=== PATIENT | female | born 1935 | race Caucasian/White ===

== ENCOUNTER → 2017-01-08 | Outpatient (CLI) | payer MEDICARE, MEDICAID ==
--- NOTE | 2017-01-08 12:34 | RADRPT ---
PROCEDURE: XR Right hip and pelvis. CLINICAL INDICATION: Right hip pain and pelvic pain. TECHNIQUE: 3 views. Frontal pelvis. Frontal and lateral right hip. COMPARISON: None. FINDINGS: There has been open reduction and internal fixation of both hips with rods in the shafts of the femu rs and screws in the neck of the femurs. There is no acute fracture and there is no dislocation. The soft tissues are normal. Articular surfaces are intact. There is no lytic or blastic lesion. There are degenerative changes of the lower lumbar spine. IMPRESSION: 1. Satisfactory postoperative appearance of both hips. 2. Degenerative changes of the lower lumbar spine. RPTAT: QQ .Kris Jones MD, MD Date Time Electronically viewed and signed by .Kris Jones MD, on 01/08/2017 12:33 .R/
--- NOTE | 2017-01-08 12:35 | RADRPT ---
PROCEDURE: XR Right Femur. CLINICAL INDICATION: Right leg pain. TECHNIQUE: AP and lateral views of the right femur were performed. COMPARISON: 11/27/2013. FINDINGS: There is a carmen in the shaft of the femur with a screw in the neck of the femur and a locking screw d istally in the shaft of the femur. Alignment of the right hip fracture is satisfactory. There is n o acute fracture or dislocation. Vascular calcifications are present consistent with atherosclerosis. Articular surfaces are intact. There is no lytic or blastic lesion. There are degenerative changes of the right knee joint. IMPRESSION: 1. Satisfactory postoperative appearance of the right femur. 2. Atherosclerosis. RPTAT: QQ .Kris Jones MD, MD Date Time Electronically viewed and signed by .Kris Jones MD, on 01/08/2017 12:34 .R/
== END | disposition home or self-care (01) ==
LOC: HKI 11:15
PROVIDERS: ATTEND Orthopaedic Surgery
DX: S72.141D Displaced intertrochanteric fracture of right femur, subsequent encounter for closed fracture with routine healing (principal); X58.XXXD Exposure to other specified factors, subsequent encounter; Z91.81 History of falling
CPT/HCPCS: 73502; 73552; G0463

== ENCOUNTER → 2017-02-15 | Outpatient (CLI) | payer MEDICARE, MEDICAID ==
--- NOTE | 2017-02-15 19:20 | RADRPT ---
PROCEDURE: XR Left Hip and pelvis. CLINICAL INDICATION: Left hip pain. Pelvic pain. TECHNIQUE: Two views. Frontal pelvis and lateral left hip. COMPARISON: 01/08/2017. FINDINGS: There has been open reduction and internal fixation of both hips. Alignment is satisfactory. There is no new fracture or dislocation. Vascular calcifications are present consistent with atheroscler osis. The articular surfaces are intact. There is no lytic or blastic lesion. There are degenerat kenisha changes of the lower lumbar spine. IMPRESSION: 1. Satisfactory postoperative appearance of both hips. RPTAT: QQ .Kris Jones MD, MD Date Time Electronically viewed and signed by .Kris Jones MD, MD on 02/15/2017 19:20 .R/
== END | disposition home or self-care (01) ==
LOC: HKI 10:10
PROVIDERS: ATTEND Orthopaedic Surgery
DX: Z01.818 Encounter for other preprocedural examination (principal)
CPT/HCPCS: 73502; 87081; G0463

== ENCOUNTER 2017-02-23 09:44 | Inpatient (IN) | payer MEDICARE, OTHER ==
[~2017-02-23] VITALS: Ht 157.5 cm; Wt 59.0 kg
[2017-02-23] VITALS (24 sets, daily range): BP systolic 117–148; BP diastolic 53–73; PULSE 53–76; RESP 10–20; Ht 157.5 cm; Wt 59.0 kg
[~2017-02-23 09:44] MED LIST: BUPIVACAINE LIPOSOME/PF 266 MG/20 ML VIAL INFIL ONE; CEFAZOLIN 2GM/50 ML (PMX) 50 ML X1 BEFORE INCISION IVPB ONE; CELECOXIB 400 MG PO X1 DOSE PO ONE; ETOMIDATE 20 MG INJ ONE; ONDANSETRON 4 MG IV X 1 DOSE IV ONE; PAIN COCKTAIL-CEFUROXIME IRR ONE; PREGABALIN 300 MG PO X1 PO ONE; SOD CHLORIDE 0.9% IV ONE; SOD CHLORIDE 0.9% IVPB ONE; TRANEXAMIC ACID IV ONE; TRANEXAMIC ACID IVPB ONE; oxyCODONE (CR) 10 MG TAB [oxyCONTIN] X1 DOSE PO ONE; traMADOL 50 MG TAB X 1 DOSE PO ONE
[2017-02-23] MEDS ORDERED: EXPAREL NOTE (BUPIVICAINE LIPOSOMAL) XX SCH (10:00)
[2017-02-23] MEDS ORDERED: FELO10TA PO (10:41)
[2017-02-23] MEDS ORDERED: VALS160T20 PO (10:41)
[2017-02-23] MEDS ORDERED: FENO135C3 PO (10:42)
[2017-02-23] MEDS ORDERED: ASPI81TA3 PO (10:42)
[2017-02-23] MEDS: LACTATED RINGER'S 1,000 ML IV SCH ×3 (11:05→17:53)
[2017-02-23] MEDS ORDERED: SOD CHLORIDE 0.9% 250 ML IV* ONE (11:30)
[2017-02-23] MEDS ORDERED: CEFAZOLIN 1 GM INJ ONE (12:58)
[2017-02-23] MEDS ORDERED: ROCURONIUM 50 MG INJ ONE (12:58)
[2017-02-23] MEDS ORDERED: NEOSTIGMINE 3 MG/3 ML SYRINGE ONE (12:58)
[2017-02-23] MEDS ORDERED: FENTAnyl 50 MCG/ML VIAL ONE ×2 (12:58→14:06)
[2017-02-23] MEDS ORDERED: PROPOFOL 20 ML ONE (12:58)
[2017-02-23] MEDS ORDERED: GLYCOPYRROLATE 0.4 MG INJ ONE (12:58)
[2017-02-23] MEDS ORDERED: MIDAZOLAM 1 MG/ML 2 ML INJ ONE (12:59)
[2017-02-23] MEDS ORDERED: ONDANSETRON 4 MG INJ ONE (12:59)
[2017-02-23] MEDS ORDERED: DEXAMETHASONE 4 MG/ML 1 ML INJ ONE (12:59)
--- NOTE | 2017-02-23 13:15 | HPN ---
Date/Time of Note Date/Time of Note DATE: 02/23/17 TIME: 13:15 Interval H&P Admission Note Pt. seen H&P reviewed: No system changes No change from H&P on 02/12/17 by DAVIDSON Lock MD Feb 23, 2017 13:15
[2017-02-23] MEDS ORDERED: VANCOMYCIN 1 GM INJ ONE (13:55)
[2017-02-23] MEDS ORDERED: POLYMYXIN B 500000 UNIT INJ ONE (13:55)
[2017-02-23] MEDS ORDERED: SODIUM CL BACTERIOSTATIC 30 ML INJ ONE (13:55)
[2017-02-23] MEDS ORDERED: IPRATROPIUM (NEB) 0.5 MG/2.5 ML AMP HHN PRN (14:30)
[2017-02-23] MEDS ORDERED: MIDAZOLAM 1 MG/ML 2 ML INJ IV PRN (14:30)
[2017-02-23] MEDS ORDERED: LABETALOL HCL 20MG INJ IV PRN (14:30)
[2017-02-23] MEDS ORDERED: FENTAnyl 50 MCG/ML VIAL IV PRN ×3 (14:30)
[2017-02-23] MEDS ORDERED: EPHEDrine SULFATE 50 MG/5 ML SYG IV PRN (14:30)
[2017-02-23] MEDS ORDERED: ALBUTEROL 0.083% (NEB) 2.5 MG/3 ML AMP HHN PRN (14:30)
[2017-02-23] MEDS ORDERED: MEPERIDINE 25 MG INJ IV PRN (14:30)
[2017-02-23] MEDS ORDERED: DIPHENHYDRAMINE 50 MG INJ IV PRN (14:30)
[2017-02-23] MEDS ORDERED: HYDROmorphONE (0.2 MG/ML) 10ML SYG IV PRN ×3 (14:30)
[2017-02-23] MEDS ORDERED: TRIMETHOBENZAMIDE 100 MG/ML VIAL IM PRN (14:30)
[2017-02-23] MEDS ORDERED: OXYCODONE/ACETAMINOPHEN (5/325) TAB PO PRN ×2 (14:30)
[2017-02-23] MEDS ORDERED: ONDANSETRON 4 MG INJ IV PRN ×2 (14:30→17:30)
[2017-02-23] MEDS ORDERED: hydrALAzine 20 MG INJ IV PRN (14:30)
[2017-02-23] MEDS ORDERED: HEPARIN 1000 UNITS/ML 10 ML INJ ONE (14:42)
[2017-02-23] MEDS ORDERED: BACITRACIN 50000 UNITS INJ ONE (15:05)
[2017-02-23] MEDS ORDERED: SUGAMMADEX SODIUM 200 MG/2 ML VIAL IV ONE (16:40)
[2017-02-23] MEDS ORDERED: NACL 0.9% 3 ML SYG IV SCH (17:30)
[2017-02-23] MEDS ORDERED: ASPIRIN (EC) 325 MG TAB PO ONE (17:30)
[2017-02-23] MEDS ORDERED: BISACODYL 10 MG SUPP PR PRN (17:30)
[2017-02-23] MEDS ORDERED: HYDROmorphONE 1 MG/ML SYG IV PRN (17:30)
[2017-02-23] MEDS ORDERED: HYDROCODONE/APAP (5/325) TAB PO PRN ×2 (17:30)
[2017-02-23] MEDS ORDERED: NA PHOSPHATE/BIPHOS 133 ML ENEMA PR PRN (17:30)
[2017-02-23] MEDS ORDERED: MAGNESIUM HYDROXIDE 30ML CUP PO PRN (17:30)
[2017-02-23] MEDS ORDERED: DIPHENHYDRAMINE 25 MG CAP PO PRN (17:30)
--- NOTE | 2017-02-23 17:46 | PN ---
Date/Time of Note Date/Time of Note DATE: 02/23/17 TIME: 17:43 Assessment/Plan Lines/Catheters IV Catheter Type (from Nrsg): Peripheral IV Assessment/Plan Assessment/Plan Stable in PACU, s/p hardware removal, right posterior YOLANDA -continue Ancef -pain meds as needed -ASA/SCDs for DVT prophylaxis -posterior hip precautions -OOB with PT -check AM labs -monitor drain -d/c maya in AM XR of the right hip is pending at time Subjective 24 Hr Interval Summary Stable in PACU. Moving all extremities. Denies significant pain. Drowsy from anesthesia. Exam/Review of Systems Vital Signs Vitals Vital Signs Date Time Temp Pulse Resp B/P Pulse Ox O2 Delivery O2 Flow Rate FiO2 02/23/17 17:48 Nasal Cannula 3.0 02/23/17 11:22 98.4 75 16 121/65 96 Exam Free Text/Dictation Hemovac: minimal Dressing dry Incision clean, dry, and intact without redness or drainage 5/5 Quadriceps, Tibialis Anterior, EHL, Gastroc, Soleus, Peroneals Normal sensation Palpable DT/PT, CR <2 sec No distal edema Results Result Diagram: 02/23/17 1742 PRIYA GUERRA PA-C Feb 23, 2017 17:46
[2017-02-23 17:49] LABS: HEMATOCRIT 31.3 % (37.0-47.0); HEMOGLOBIN 10.1 g/dl (12.0-16.0)
[2017-02-23] MEDS: CEFAZOLIN 2 GM/50 ML (PMX) 50 ML IVPB SCH (17:54)
--- NOTE | 2017-02-23 17:57 | OPR ---
Date/Time of Note Date/Time of Note DATE: 02/23/17 TIME: 17:48 Operative Report Procedure Description DATE: 02/23/2017 PREOPERATIVE DAGNOSIS: Right subcapital femoral neck fracture status post previous intramedullary rodding of a right intertrochanteric hip fracture POSTOPERATIVE DIAGNOSIS: Right subcapital femoral neck fracture status post previous intramedullary rodding of a right intertrochanteric hip fracture OPERATION PERFORMED: Hardware removal right hip and conversion to right total hip arthroplasty. SURGEON: Davidson Neumann MD SALES REPRESENTATIVE FACILITY SERVICES: Jovani Martínez PA-C COMPONENTS USED: DePuy size 52 mm Gription [place] cup, 52/36 neutral Altrx polyethylene liner, 20 x 15 SROM stem with a 36 standard neck, 20D small ZTT sleeve, 36 minus 3 cobalt chrome femoral head ANESTHESIA: Spinal plus general endotracheal intubation. ESTIMATED BLOOD LOSS: 500 cc INTRAVENOUS FLUIDS: 2500 cc crystalloid, 125 cc of autologous Cell Saver blood SPECIMENS: Femoral head. DRAINS: Hemovac x1. COMPLICATIONS: None. DISPOSITION: The patient tolerated the procedure well and was taken to the recovery room in stable condition. INDICATIONS: The patient is a 81-year-old woman who underwent a previous intramedullary nailing of her right intertrochanteric hip fracture about 1 year ago. The fracture healed. She was doing well but then had increasing pain and x-ray showed a new subacute femoral neck fracture in the subcapital region with cut out of the screw. I felt she would benefit from removal of the intramedullary carmen and conversion to a total hip arthroplasty. The risks, benefits, and alternatives of the procedure were explained in detail to the patient. I explained the risks of the surgery to include, but not be limited to, bleeding and possible need for blood transfusion; infections; pain; stiffness; neurovascular injury with possible numbness, weakness, and/or paralysis anywhere from the hip down to the toes; fracture, instability, or dislocation; leg length inequality; wear and/or loosening of the prosthesis and possible need for future revision; blood clots and pulmonary embolism; and anesthetic complications such as heart attack, stroke, GI bleed, pneumonia, and/ or . Ample time was allowed for the patient to ask questions, all of which were addressed and answered. The patient understood the risks involved and wished to proceed. Informed consent was signed prior to the procedure. PROCEDURE: The patient's right hip was initialed with a marking pen in the preoperative area to identify the correct operative site. The patient was brought to the operating room and transferred from the [facility] to the operating table where a spinal anesthesia was administered. The patient was then anesthetized and intubated. A Guillen catheter was placed. A timeout was performed to confirm that the right side was the correct operative site. The patient was given 1 g of Ancef within one hour prior to the procedure. The patient was turned to the lateral decubitus position with the operative side up. An axillary roll was placed under the chest wall. The patient was secured onto the pegboard, and all bony prominences were well padded. The operative hip and lower extremity were prepped and draped in the usual sterile fashion. The previous distal incision was incised and carried down through subcutaneous tissue and fat with sharp dissection. The iliotibial band was incised and the distal interlocking screw was identified and removed. The wound was irrigated with antibiotic saline and closed in layers with #1 Vicryl 3-0 Vicryl and jennifer on the skin. A posterolateral incision was made centered over the greater trochanter and carried down through subcutaneous tissue and fat with sharp dissection. The iliotibial band and gluteus beau muscle fibers were bluntly split. The trochanteric bursa was incised. The piriformis and conjoined tendon were identified and taken down off the posterior aspect of the greater trochanter and tagged with #2 FiberWire. The synovial fluid was normal in color and consistency. The femoral head was dislocated posteriorly. The tip of the screw could be seen protruding through the articular cartilage of the femoral head. At this point the tip of the intramedullary carmen was identified at the tip of the greater trochanter after some of the overlying bone was removed with a rongeur. The proximal set screw was removed. The helical screw was then removed. The extraction device was then threaded into the tip of the intramedullary carmen and the carmen was extracted by backslapping it out. A femoral neck osteotomy was made and the femur retracted anteriorly. The remnants of the labrum and ligamentum teres were excised. I then reamed the acetabulum to the medial wall, and then went up by 2 mm increments until I got a good bite and was down to bleeding subchondral bone. The [place] cup was opened and impacted into the acetabulum and sat flush circumferentially, getting a good bite. The trial neutral liner was placed into position. The Aufranc-Cerda guide showed the cup had about 40 to 45 degrees of abduction and 20 degrees of anteversion. Attention was then turned towards the femur. The medial overhanging greater trochanter was removed with a [employer] cutter osteotome. The canal was opened, and then the lateralizing reamer was used to take away any remaining overhanging greater trochanter. The canal was reamed up to 15.5 mm getting a good bite. The proximal reamers were then used to get up to a 20 D. I then used the triangular Kenney to ream up to a 20 D small. The trial 20 D ZTT sleeve was placed into position and a 20 x 15 trial stem with a 36 standard neck was assembled keeping the trunnion anteverted 20-25 relative to the tibia pointing towards the ceiling. A 36 minus 3 trial head was assembled onto the trunnion and then reduced into the acetabulum. The hip was then taken through range of motion and was quite stable. There was 110 degrees of flexion. At 90 degrees of flexion and neutral abduction, the hip was stable posteriorly to 80 degrees of internal rotation. In the position of sleep, it was stable to 85 degrees of internal rotation. The hip came to full extension, and there was no posterior impingement or instability. The Ranawat sign showed a combined forward flexion of 45 degrees. Leg lengths were palpated to be equal. At this point, the trial was dislocated and the trial removed from the femur. The canal was irrigated and dried. The trial liner was removed. The canal was irrigated and dried. The real ZTT sleeve and stem were opened, impacted into the femur, and sat flush with the neck cut. The trunnion was irrigated and dried. The real femoral head was impacted onto the trunnion and reduced into the acetabulum. The hip had the same range of motion and stability as with the trial. A crosstable AP pelvis was obtained and showed that the components were in good position and the leg lengths were equal. The posterior capsule and short external rotators were repaired back to the greater trochanter through drill holes with #2 FiberWire. The quadratus femoris was repaired back to the vastus lateralis with interrupted #1 Vicryl in a figure -of-eight fashion. The sciatic nerve was inspected and noted to be intact, with no undue tension. The soft tissues were infiltrated with a mixture of 150 mg of 0.5% Bupivacaine, 8 mg of Duramorph, 300 mcg of epinephrine, 30 mg of Toradol, 100 mcg of clonidine, 750 mg of cefuroxime and 86 mL of normal saline, followed by an injection of 266 mg of liposomal Bupivacaine. A Hemovac drain was placed in the deep portion of the wound and brought out the anterolateral thigh. At this point the hip was irrigated with a mixture of betadine/saline and then antibiotic saline with pulsatile lavage. The iliotibial band was repaired with interrupted #1 Ethibond in a [id number] fashion. The gluteus beau muscle fascia was repaired with a running #1 Vicryl. The deep fat layer was irrigated and closed with 2-0 Stratafix, the subcutaneous layer closed with 3-0 Vicryl, and jennifer on the skin. Skin edges were sealed with Dermabond. The drain was secured with 3-0 nylon. The sponge and needle counts were correct at the end of the case. The wound was covered with an occlusive dressing. The patient was awakened, extubated, and taken to the recovery room in stable condition. An assistant film editor surgeon was necessary in the integral part of the procedure for positioning of the extremity, preparation of the patient before and after the surgical intervention. DAVIDSON NEUMANN MD Feb 23, 2017 17:57
[2017-02-23] MEDS: PANTOPRAZOLE (EC) 40 MG TAB PO SCH (18:00)
[2017-02-23] MEDS: traMADol 50 MG TAB PO SCH ×2 (18:00→23:31)
[2017-02-23 18:22] LABS: CALCIUM 8.8 mg/dl (8.4-10.2); CREATININE 0.58 mg/dl (0.44-1.00); POTASSIUM 3.9 mmol/L (3.5-5.1)
--- NOTE | 2017-02-23 19:17 | RADRPT ---
PROCEDURE: X-ray pelvis. CLINICAL INDICATION: New right hip arthroplasty TECHNIQUE: Single AP postsurgical view of the right hip. Images obtained over the mid to lower pe lvis, and upper pelvis is not included on the film. COMPARISON: 02/15/2017 FINDINGS: New right hip arthroplasty without evident hardware complication. Post surgical drain in place. De mineralization limits evaluation of fine osseous detail. Dystrophic calcifications again seen over the soft tissues of the medial left inguinal region. Screw and carmen fixator at the left hip without evident hardware complication. IMPRESSION: New right hip arthroplasty in place without evident hardware complication. RPTAT: [facility] Physician Sharlene Date Time Electronically viewed and signed by Physician Sharlene on 02/23/2017 19:17 RS/
[2017-02-23] MEDS ORDERED: TRANEXAMIC ACID 590 MG in SOD CHLORIDE 0.9% 100 ML IVPB ONE ×2 (20:30→23:30)
[2017-02-23] MEDS: DOCUSATE SODIUM 100 MG CAP PO SCH (20:46)
[2017-02-24] MEDS: CEFAZOLIN 2 GM/50 ML (PMX) 50 ML IVPB SCH ×2 (01:10→09:51)
[2017-02-24] MEDS: LACTATED RINGER'S 1,000 ML IV SCH ×3 (01:13→14:05)
--- NOTE | 2017-02-24 01:21 | RADRPT ---
PROCEDURE: Fluoroscopy services. CLINICAL INDICATION: Helical blade plate and carmen fixation at the right hip, now for revision. TECHNIQUE: Fluoroscopy services during removal of prior hardware and placement of new right hip ar throplasty. COMPARISON: 01/08/2017 and 11/27/2013 FINDINGS: Fluoroscopy services during removal of prior hardware and placement of new right hip arthroplasty. 10 intraoperative spot films were obtained at intermediate stages during this procedure and demonstr ate removal of hardware and placement of new right hip arthroplasty. No fluoroscopy time data was provided for this study. IMPRESSION: Fluoroscopy services during removal of prior hardware placement of new right hip arthroplasty. RPTAT: [facility]U Physician Sharlene Date Time Electronically viewed and signed by Physician Sharlene on 02/24/2017 01:21 RS/
[2017-02-24 02:25] VITALS: BP 162/73; RESP 18
[2017-02-24 04:25] VITALS: BP 142/64; PULSE 60; RESP 18
[2017-02-24 05:36] LABS: HEMATOCRIT 26.5 % (37.0-47.0); HEMOGLOBIN 8.6 g/dl (12.0-16.0)
[2017-02-24 05:49] LABS: CALCIUM 8.9 mg/dl (8.4-10.2); CREATININE 0.55 mg/dl (0.44-1.00)
[2017-02-24] MEDS: PANTOPRAZOLE (EC) 40 MG TAB PO SCH ×3 (06:00→18:00)
[2017-02-24] MEDS: traMADol 50 MG TAB PO SCH ×3 (06:00→18:00)
--- NOTE | 2017-02-24 06:14 | CONS ---
DATE OF ADMISSION: 02/23/2017 DATE OF CONSULTATION: 02/23/2017 HISTORY OF PRESENT ILLNESS: Dr. Lovell, thank you very much for allowing me to evaluate this 81-year-old female, who just underwent a right hip arthroplasty. HISTORICAL EVENTS: As you well know, this patient has had progressive disabling pain involving her right hip and underwent removal of hardware. Subsequently underwent a posterior total hip arthroplasty. She presently is in recovery and is comfortable. PAST MEDICAL HISTORY: Hypertension and hyperlipidemia. MEDICATION: Aspirin which was discontinued, valsartan, Trilipix, and felodipine 10 mg per day. PHYSICAL EXAMINATION: GENERAL APPEARANCE: Comfortable female in no acute distress. VITAL SIGNS: BP 120/80, pulse 70, respirations 20, she was afebrile. HEENT: Eyes, extraocular muscles were full. Nose, mouth, throat normal. NECK: Neck was supple. There was no jugular venous distention, thyroid enlargement, adenopathy. Carotids 2 plus. LUNGS: Lungs clear. HEART: Heart rhythm regular. No murmur. No 3rd or 4th sound. ABDOMEN: Abdomen, nontender. Liver and spleen were not palpable. No mass or tenderness were noted. EXTREMITIES: Extremities no edema. No calf tenderness. NEUROLOGIC: No lateralizing motor weakness. IMPRESSION AND PLAN: 1. Stable postop right hip replacement. 2. Hypertension. Continue antihypertensive therapy and will continue to monitor blood pressure throughout. 3. We will evaluate daily for signs and symptoms of thromboembolic disease despite appropriate deep venous thrombosis (DVT) prophylaxis. Dictated By: Morris Payne MD /caridad/bird /Document#: [id number]
[2017-02-24 08:01] VITALS: BP 150/67; RESP 16
--- NOTE | 2017-02-24 08:33 | CONS ---
Date/Time of Note Date/Time of Note DATE: 02/24/17 TIME: 08:31 Assessment/Plan Assessment/Plan Additional Assessment/Plan 1. Doing well post op right hip replacement 2. Hx HBP, controlled 3. Anemia, noted, will monitor with you Consultation Date/Type/Reason Admit Date/Time Feb 23, 2017 at 10:17 Initial Consult Date Detailed Summary Respiratory: No cough, No shortness of breath Cardiovascular: No chest pain Gastrointestinal: no complaints Genitourinary: other (maya in place) Musculoskeletal: bone/joint pain (mild right hip pain) Exam/Review of Systems Vital Signs Vitals Vital Signs Date Time Temp Pulse Resp B/P Pulse Ox O2 Delivery O2 Flow Rate FiO2 02/24/17 08:01 97.9 65 16 150/67 98 02/24/17 04:25 Nasal Cannula 02/23/17 21:50 2.0 Intake and Output 02/23/17 02/23/17 02/24/17 15:00 23:00 07:00 Intake Total 4705.9 ml 1255.9 ml Output Total 1860 ml 980 ml Balance 2845.9 ml 275.9 ml Exam Neck: No jvd Respiratory: clear to auscultation Cardiovascular: regular rate and rhythm Gastrointestinal: soft Extremities: No edema (and no calf tend bilat) Results Result Diagram: 02/24/17 0444 02/24/17 0444 Results 24 hrs Laboratory Tests Test 02/23/17 17:42 02/24/17 04:44 Hemoglobin 10.1 L 8.6 L Hematocrit 31.3 L 26.5 L Sodium Level 142 139 Potassium Level 3.9 4.0 Chloride Level 106 102 Carbon Dioxide Level 23 26 Anion Gap 17 H 15 Blood Urea Nitrogen 20 19 Creatinine 0.58 0.55 Glucose Level 158 115 # Calcium Level 8.8 8.9 Medications Medications Current Medications Felodipine (Plendil) 10 mg DAILY PO ; Start 02/24/17 at 09:00 Valsartan (Diovan) 160 mg DAILY PO ; Start 02/24/17 at 09:00 Fenofibrate 145 mg 145 mg DAILY PO ; Start 02/24/17 at 09:00 Lactated Ringer's (Lr) 1,000 ml @ 125 mls/hr Q8H IV Last administered on t 05:11; Admin Dose 125 MLS/HR; Start 02/23/17 at 17:27 Tramadol HCl (Ultram) 50 mg Q6 PO ; Start 02/23/17 at 12:00; Stop 02/26/17 at 11: 59 Acetaminophen/ Hydrocodone Bitart ([place] (5/325)) 1 tab Q4H PRN PO PAIN LEVEL 1 -3; Start 02/23/17 at 17:30 Acetaminophen/ Hydrocodone Bitart ([place] (5/325)) 2 tab Q4H PRN PO PAIN LEVEL 4 -7; Start 02/23/17 at 17:30 Hydromorphone HCl 1 mg 1 mg Q3H PRN IV PAIN LEVEL 8-10; Start 02/23/17 at 17:30 Cefazolin Sodium/ Dextrose (Ancef 2 Gm/50 ml (Pmx)) 50 ml @ 100 mls/hr Q8H IVPB Last administered on 02/24/17 01:10; Admin Dose 100 MLS/HR; Start 02/23/17 at 17:30; Stop 02/24/17 at 09:59 Ondansetron HCl (Zofran Inj) 4 mg Q6H PRN IV NAUSEA AND/OR VOMITING Last administered on 02/24/17 00:55; Admin Dose 4 MG; Start 02/23/17 at 17:30 Bisacodyl (Dulcolax Supp) 10 mg Q12H PRN [place] CONSTIPATION; Start 02/23/17 at 17: 30 Magnesium Hydroxide (Milk Of Mag) 30 ml BID PRN PO CONSTIPATION; Start 02/23/17 at 17:30 Sodium Biphosphate/ Sodium Phosphate (Fleet Enema) 133 ml DAILY PRN [place] CONSTIPATION; Start 02/23/17 at 17:30 Docusate Sodium (Colace) 100 mg BID PO ; Start 02/23/17 at 21:00 Diphenhydramine HCl (Benadryl) 25 mg Q6H PRN PO PRURITUS; Start 02/23/17 at 17: 30 Aspirin (Ecotrin) 325 mg BID PO ; Start 02/24/17 at 09:00 Pantoprazole (Protonix Tab) 40 mg BID@06,18 PO Last administered on 02/24/17 06 :35; Admin Dose 40 MG; Start 02/23/17 at 18:00 ROMANA MORAN MD Feb 24, 2017 08:33
--- NOTE | 2017-02-24 08:43 | PN ---
Date/Time of Note Date/Time of Note DATE: 02/24/17 TIME: 08:41 Assessment/Plan Lines/Catheters IV Catheter Type (from Nrsg): Peripheral IV Guillen in Place (from Nrsg): No Assessment/Plan Assessment/Plan Stable POD #1, s/p hardware removal, right posterior YOLANDA -d/c Ancef -pain meds as needed -ASA/SCDs -OOB with PT -drain removed -check AM labs -d/c planning. Family and patient would like to go home upon discharge Subjective 24 Hr Interval Summary No acute overnight events. Denies significant pain. Did not start PT yesterday. H&H low but will monitor for now. VSS, afebrile. Family would like her to go home upon discharge. Exam/Review of Systems Vital Signs Vitals Vital Signs Date Time Temp Pulse Resp B/P Pulse Ox O2 Delivery O2 Flow Rate FiO2 02/24/17 08:01 97.9 65 16 150/67 98 02/24/17 04:25 Nasal Cannula 02/23/17 21:50 2.0 Intake and Output 02/23/17 02/23/17 02/24/17 15:00 23:00 07:00 Intake Total 4705.9 ml 1255.9 ml Output Total 1860 ml 980 ml Balance 2845.9 ml 275.9 ml Exam Free Text/Dictation Hemovac: 190cc Dressing dry Incision clean, dry, and intact without redness or drainage 5/5 Quadriceps, Tibialis Anterior, EHL, Gastroc, Soleus, Peroneals Normal sensation Palpable DT/PT, CR <2 sec No distal edema Results Result Diagram: 02/24/17 0444 02/24/17 0444 PRIYA GUERRA PA-C Feb 24, 2017 08:43
[2017-02-24] MEDS ORDERED: FELODIPINE (ER) 10 MG TAB PO SCH (09:00)
[2017-02-24] MEDS ORDERED: VALSARTAN 160 MG TAB PO SCH (09:00)
[2017-02-24] MEDS: FENOFIBRATE 145 MG TAB PO SCH (09:42)
[2017-02-24] MEDS: DOCUSATE SODIUM 100 MG CAP PO SCH ×2 (09:43→20:08)
[2017-02-24] MEDS: ASPIRIN (EC) 325 MG TAB PO SCH ×2 (09:43→20:08)
[2017-02-24 09:46] LABS: ADD UMIC NO; UR ASCORBIC ACID NEGATIVE (NEGATIVE); UR BILIRUBIN (Dip) NEGATIVE (NEGATIVE); UR BLOOD (Dip) NEGATIVE (NEGATIVE); UR CLARITY CLEAR (CLEAR); UR COLOR YELLOW (YELLOW); UR GLUCOSE (Dip) 1+ mg/dL (NEGATIVE); UR KETONES (Dip) NEGATIVE (NEGATIVE); UR LEUKOCYTE ESTERASE (Dip) NEGATIVE Leu/ul (NEGATIVE); UR NITRITE (Dip) NEGATIVE (NEGATIVE); UR SPECIFIC GRAVITY (Dip) 1.014 (1.003-1.030); UR TOTAL PROTEIN (Dip) NEGATIVE (NEGATIVE); UR UROBILINOGEN (Dip) NEGATIVE (NEGATIVE)
[2017-02-24] MEDS: FELODIPINE (ER) 5 MG TAB PO SCH (11:35)
[2017-02-24 15:22] VITALS: BP 125/60; RESP 16
[2017-02-25] MEDS: LACTATED RINGER'S 1,000 ML IV SCH ×3 (01:27→17:27)
[2017-02-25 02:42] VITALS: BP 129/64; RESP 18
[2017-02-25] MEDS: PANTOPRAZOLE (EC) 40 MG TAB PO SCH ×2 (05:39→18:00)
[2017-02-25] MEDS: traMADol 50 MG TAB PO SCH ×7 (05:40→23:31)
--- NOTE | 2017-02-25 06:45 | PDOCDIS ---
Discharge Instructions DIAGNOSIS Discharge Diagnosis s/p hardware removal, right posterior YOLANDA CONDITION Patient Condition: Good HOME CARE INSTRUCTIONS: Diet Instructions: Regular ACTIVITY: Activity Restrictions: Slowly Increase Activity Rest between Activity Avoid heavy lifting Do not operate Machinery Do not operate Power Tool Avoid Heavy Housework Keep Limb Elevated Weight Bearing Bathing Restrictions: Shower FOLLOW UP/APPOINTMENTS Follow-up Plan follow up in the office on 03/05/17 OTHER ORDERS: Other Orders: S/P Posterior YOLANDA Physical Therapy: Three times per week at home x 2 weeks Daily in Rehab/SNF WB STATUS: WBAT Strengthening exercises for both upper and un-operated lower extremities. 1. Gait training with front wheeled walker 2. Wide base gait, no pivot turns. 3. Abductor strengthening. 4. Quadriceps and hamstring strengthening. 5. May switch to cane in contra lateral hand 6 weeks after surgery. 6. Physical Therapy can open case if nursing is not available. 7. Ice Packs while at rest to surgical wound for 20 minutes, 3 times/day. 8. Patient requires mobile SCDs to reduce risk of developing DVT following YOLANDA. Patient will use the mobile SCDs for 30 days postoperatively. Hip Precautions: no flexion beyond 90 degrees, no adduction, no internal rotation. Bathing assistance by home health aide twice weekly if Medicare patient. Occupational Therapy: Evaluation for assistive devices and ADL training. Wound Care: Keep incision dry & covered with Tegaderm until first visit with Dr. Lovell Anticoagulation Orders: Enteric Coated Aspirin 325 mg po bid x 6 weeks from date of surgery Follow-up:Call for an appointment with Dr. Lovell in 1 week after discharged from hospital at DME Orders: DONTE, 3-in-1 Commode, Mobile SCDs PRIYA GUERRA PA-C Feb 25, 2017 06:45
[2017-02-25] MEDS ORDERED: ASPI325T32 PO (06:46)
[2017-02-25] MEDS ORDERED: PANT40TA4 PO (06:46)
[2017-02-25] MEDS ORDERED: HYDR-3498 PO (06:46)
[2017-02-25] MEDS ORDERED: TRAM50TA2 PO (06:46)
[2017-02-25 07:40] LABS: HEMATOCRIT 27.8 % (37.0-47.0); HEMOGLOBIN 8.9 g/dl (12.0-16.0)
--- NOTE | 2017-02-25 07:44 | PN ---
Date/Time of Note Date/Time of Note DATE: 02/25/17 TIME: 07:43 Assessment/Plan Lines/Catheters IV Catheter Type (from Nrsg): Saline Lock Guillen in Place (from Nrsg): No Assessment/Plan Assessment/Plan POD #2, s/p hardware removal, right posterior YOLANDA -pain meds as needed -ASA/SCDs -OOB with PT -dressing changed -lab draw today to check H&H -posterior hip precautions -plan for discharge home tomorrow Subjective 24 Hr Interval Summary No acute overnight events. Having mild pain. Refused lab draw this morning. Also not wearing SCDs and abduction pillow as recommended. VSS, afebrile. Home versus SNF upon discharge. Exam/Review of Systems Vital Signs Vitals Vital Signs Date Time Temp Pulse Resp B/P Pulse Ox O2 Delivery O2 Flow Rate FiO2 02/25/17 02:42 98.2 72 18 129/64 97 02/24/17 20:00 Nasal Cannula 2.0 Intake and Output 02/24/17 02/24/17 02/25/17 14:59 22:59 06:59 Intake Total 1050 ml 1100 ml 960 ml Output Total 900 ml Balance 1050 ml 200 ml 960 ml Exam Free Text/Dictation Dressing dry Incision clean, dry, and intact without redness or drainage 5/5 Quadriceps, Tibialis Anterior, EHL, Gastroc, Soleus, Peroneals Normal sensation Palpable DT/PT, CR <2 sec No distal edema Results Result Diagram: 02/25/17 0708 02/24/17 0444 PRIYA GUERRA PA-C Feb 25, 2017 07:44
[2017-02-25 08:00] VITALS: BP 142/63; RESP 18
--- NOTE | 2017-02-25 08:08 | CONS ---
Date/Time of Note Date/Time of Note DATE: 02/25/17 TIME: 08:06 Assessment/Plan Assessment/Plan Additional Assessment/Plan 1. Doing well post op right hip replacement. 2. Hx HBP, controlled 3. Hyperlipidemia, statin continued 4. DC per ortho and PT Consultation Date/Type/Reason Admit Date/Time Feb 23, 2017 at 10:17 Detailed Summary Respiratory: cough, shortness of breath Cardiovascular: chest pain Gastrointestinal: nausea, pain, vomiting Genitourinary: no complaints Musculoskeletal: bone/joint pain (mod right hip pain) Exam/Review of Systems Vital Signs Vitals Vital Signs Date Time Temp Pulse Resp B/P Pulse Ox O2 Delivery O2 Flow Rate FiO2 02/25/17 02:42 98.2 72 18 129/64 97 02/24/17 20:00 Nasal Cannula 2.0 Intake and Output 02/24/17 02/24/17 02/25/17 15:00 23:00 07:00 Intake Total 1050 ml 1100 ml 960 ml Output Total 900 ml Balance 1050 ml 200 ml 960 ml Exam Neck: jvd Respiratory: clear to auscultation Cardiovascular: regular rate and rhythm Gastrointestinal: soft Extremities: edema (and no calf tend) Results Result Diagram: 02/25/17 0708 02/24/17 0444 Results 24 hrs Laboratory Tests Test 02/25/17 07:08 Hemoglobin 8.9 L Hematocrit 27.8 L Medications Medications Current Medications Fenofibrate 145 mg 145 mg DAILY PO Last administered on 02/24/17 09:42; Admin Dose 145 MG; Start 02/24/17 at 09:00 Lactated Ringer's (Lr) 1,000 ml @ 125 mls/hr Q8H IV Last administered on 14:05; Admin Dose 125 MLS/HR; Start 02/23/17 at 17:27 Tramadol HCl (Ultram) 50 mg Q6 PO ; Start 02/23/17 at 12:00; Stop 02/26/17 at 11: 59 Acetaminophen/ Hydrocodone Bitart ([place] (5/325)) 1 tab Q4H PRN PO PAIN LEVEL 1 -3; Start 02/23/17 at 17:30 Acetaminophen/ Hydrocodone Bitart ([place] (5/325)) 2 tab Q4H PRN PO PAIN LEVEL 4 -7; Start 02/23/17 at 17:30 Hydromorphone HCl (Dilaudid) 1 mg Q3H PRN IV PAIN LEVEL 8-10; Start 02/23/17 at 17:30 Ondansetron HCl (Zofran Inj) 4 mg Q6H PRN IV NAUSEA AND/OR VOMITING Last administered on 02/24/17 00:55; Admin Dose 4 MG; Start 02/23/17 at 17:30 Bisacodyl (Dulcolax Supp) 10 mg Q12H PRN [place] CONSTIPATION; Start 02/23/17 at 17: 30 Magnesium Hydroxide (Milk Of Mag) 30 ml BID PRN PO CONSTIPATION; Start 02/23/17 at 17:30 Sodium Biphosphate/ Sodium Phosphate (Fleet Enema) 133 ml DAILY PRN [place] CONSTIPATION; Start 02/23/17 at 17:30 Docusate Sodium (Colace) 100 mg BID PO Last administered on 02/24/17 20:08; Admin Dose 100 MG; Start 02/23/17 at 21:00 Diphenhydramine HCl (Benadryl) 25 mg Q6H PRN PO PRURITUS; Start 02/23/17 at 17: 30 Aspirin (Ecotrin) 325 mg BID PO Last administered on 02/24/17 20:08; Admin Dose 325 MG; Start 02/24/17 at 09:00 Pantoprazole (Protonix Tab) 40 mg BID@06,18 PO Last administered on 02/24/17 06 :35; Admin Dose 40 MG; Start 02/23/17 at 18:00 Felodipine (Plendil) 10 mg DAILY PO ; Start 02/24/17 at 10:00 Valsartan (Diovan) 160 mg QHS PO ; Start 02/25/17 at 21:00 ROMANA MORAN MD Feb 25, 2017 08:08
[2017-02-25 08:17] LABS: CALCIUM 9.2 mg/dl (8.4-10.2); CREATININE 0.76 mg/dl (0.44-1.00); POTASSIUM 3.9 mmol/L (3.5-5.1)
[2017-02-25] MEDS: FENOFIBRATE 145 MG TAB PO SCH ×2 (08:57→09:00)
[2017-02-25] MEDS: ASPIRIN (EC) 325 MG TAB PO SCH ×2 (08:57→21:32)
[2017-02-25] MEDS: FELODIPINE (ER) 5 MG TAB PO SCH (08:57)
[2017-02-25] MEDS: DOCUSATE SODIUM 100 MG CAP PO SCH ×2 (08:57→21:32)
[2017-02-25 14:00] VITALS: BP 107/53; RESP 16
[2017-02-25 19:30] VITALS: BP 107/51; RESP 18
[2017-02-25] MEDS ORDERED: VALSARTAN 160 MG TAB PO SCH (21:00)
[2017-02-26] VITALS (8 sets, daily range): BP systolic 109–152; BP diastolic 53–71; PULSE 78–80; RESP 16–18
[2017-02-26] MEDS: LACTATED RINGER'S 1,000 ML IV SCH ×2 (01:27→09:27)
[2017-02-26] MEDS: PANTOPRAZOLE (EC) 40 MG TAB PO SCH (05:01)
[2017-02-26] MEDS: traMADol 50 MG TAB PO SCH (05:01)
[2017-02-26 05:52] LABS: HEMATOCRIT 24.8 % (37.0-47.0); HEMOGLOBIN 7.7 g/dl (12.0-16.0)
[2017-02-26 06:32] LABS: CALCIUM 8.7 mg/dl (8.4-10.2); CREATININE 0.59 mg/dl (0.44-1.00); POTASSIUM 3.3 mmol/L (3.5-5.1)
[2017-02-26] MEDS: FELODIPINE (ER) 5 MG TAB PO SCH (07:56)
--- NOTE | 2017-02-26 08:43 | PN ---
Date/Time of Note Date/Time of Note DATE: 02/26/17 TIME: 08:41 Assessment/Plan Lines/Catheters IV Catheter Type (from Nrsg): Saline Lock Guillen in Place (from Nrsg): No Assessment/Plan Assessment/Plan POD #3, s/p hardware removal, right posterior hip replacement -transfuse 1 unit PRBCs -pain meds as needed -ASA/SCDs -OOB with PT -dressing changed -d/c home today after blood transfusion -follow up in the office in 1 week Subjective 24 Hr Interval Summary No acute overnight events. Continues to remove abduction pillow and SCDs, despite repeated stress of importance of post op compliance. H&H low today but patient is asymptomatic. Progressing with PT. Will plan to go home today after blood transfusion. Exam/Review of Systems Vital Signs Vitals Vital Signs Date Time Temp Pulse Resp B/P Pulse Ox O2 Delivery O2 Flow Rate FiO2 02/26/17 07:53 98.3 77 18 152/71 96 02/25/17 20:00 Nasal Cannula 2.0 Intake and Output 02/25/17 02/25/17 02/26/17 15:00 23:00 07:00 Intake Total 1200 ml 480 ml Balance 1200 ml 480 ml Exam Free Text/Dictation Dressing dry Incision clean, dry, and intact without redness or drainage 5/5 Quadriceps, Tibialis Anterior, EHL, Gastroc, Soleus, Peroneals Normal sensation Palpable DT/PT, CR <2 sec No distal edema Results Result Diagram: 02/26/17 0505 02/26/17 0505 PRIYA GUERRA PA-C Feb 26, 2017 08:43
[2017-02-26] MEDS: DOCUSATE SODIUM 100 MG CAP PO SCH (08:52)
[2017-02-26] MEDS: FENOFIBRATE 145 MG TAB PO SCH (08:53)
[2017-02-26] MEDS: ASPIRIN (EC) 325 MG TAB PO SCH (08:53)
--- NOTE | 2017-02-26 09:58 | CONS ---
Date/Time of Note Date/Time of Note DATE: 02/26/17 TIME: 09:54 Assessment/Plan Assessment/Plan Chief Complaint/Hosp Course 1. She 3 days post op a R hip surgery . She is doing well . 2. Anemia , she is going to receive 1 unit of blood transfusion today and then will be discharged to home . Problems: Consultation Date/Type/Reason Admit Date/Time Feb 23, 2017 at 10:17 Initial Consult Date 24 HR Interval Summary Free Text/Dictation She has no complaints today . Constitutional: improved, no complaints Exam/Review of Systems Vital Signs Vitals Vital Signs Date Time Temp Pulse Resp B/P Pulse Ox O2 Delivery O2 Flow Rate FiO2 02/26/17 07:53 98.3 77 18 152/71 96 02/25/17 20:00 Nasal Cannula 2.0 Intake and Output 02/25/17 02/25/17 02/26/17 15:00 23:00 07:00 Intake Total 1200 ml 480 ml Balance 1200 ml 480 ml Exam Constitutional: alert, oriented, well developed Respiratory: clear to auscultation, normal air movement Cardiovascular: regular rate and rhythm Gastrointestinal: non-tender, soft Musculoskeletal: nl extremities to inspection Results Result Diagram: 02/26/17 0505 02/26/17 0505 Results 24 hrs Laboratory Tests Test 02/26/17 05:05 Hemoglobin 7.7 L Hematocrit 24.8 L Sodium Level 143 Potassium Level 3.3 L Chloride Level 105 Carbon Dioxide Level 26 Anion Gap 15 Blood Urea Nitrogen 14 Creatinine 0.59 Glucose Level 90 Calcium Level 8.7 Medications Medications Current Medications Fenofibrate 145 mg 145 mg DAILY PO Last administered on 02/26/17 08:53; Admin Dose 145 MG; Start 02/24/17 at 09:00 Lactated Ringer's (Lr) 1,000 ml @ 125 mls/hr Q8H IV Last administered on 14:05; Admin Dose 125 MLS/HR; Start 02/23/17 at 17:27 Tramadol HCl (Ultram) 50 mg Q6 PO Last administered on 02/25/17 13:52; Admin Dose 50 MG; Start 02/23/17 at 12:00; Stop 02/26/17 at 11:59 Acetaminophen/ Hydrocodone Bitart ([place] (5/325)) 1 tab Q4H PRN PO PAIN LEVEL 1 -3; Start 02/23/17 at 17:30 Acetaminophen/ Hydrocodone Bitart ([place] (5/325)) 2 tab Q4H PRN PO PAIN LEVEL 4 -7; Start 02/23/17 at 17:30 Hydromorphone HCl (Dilaudid) 1 mg Q3H PRN IV PAIN LEVEL 8-10; Start 02/23/17 at 17:30 Ondansetron HCl (Zofran Inj) 4 mg Q6H PRN IV NAUSEA AND/OR VOMITING Last administered on 02/24/17 00:55; Admin Dose 4 MG; Start 02/23/17 at 17:30 Bisacodyl (Dulcolax Supp) 10 mg Q12H PRN [place] CONSTIPATION; Start 02/23/17 at 17: 30 Magnesium Hydroxide (Milk Of Mag) 30 ml BID PRN PO CONSTIPATION; Start 02/23/17 at 17:30 Sodium Biphosphate/ Sodium Phosphate (Fleet Enema) 133 ml DAILY PRN [place] CONSTIPATION; Start 02/23/17 at 17:30 Docusate Sodium (Colace) 100 mg BID PO Last administered on 02/26/17 08:52; Admin Dose 100 MG; Start 02/23/17 at 21:00 Diphenhydramine HCl (Benadryl) 25 mg Q6H PRN PO PRURITUS; Start 02/23/17 at 17: 30 Aspirin (Ecotrin) 325 mg BID PO Last administered on 02/26/17 08:53; Admin Dose 325 MG; Start 02/24/17 at 09:00 Pantoprazole (Protonix Tab) 40 mg BID@,18 PO Last administered on 02/24/17 06 :35; Admin Dose 40 MG; Start 02/23/17 at 18:00 Felodipine (Plendil) 10 mg DAILY PO Last administered on 02/26/17 07:56; Admin Dose 10 MG; Start 02/24/17 at 10:00 Valsartan (Diovan) 160 mg QHS PO ; Start 02/25/17 at 21:00 FERMÍN GONZALES MD Feb 26, 2017 09:58
--- NOTE | 2017-02-26 14:08 | DS ---
Date/Time of Note Date/Time of Note DATE: 02/26/17 TIME: 14:04 Discharge Summary Admission/Discharge Info Admit Date/Time Feb 23, 2017 at 10:17 Discharge Date/Time February 26, 2017 Discharge Diagnosis s/p hardware removal, right posterior YOLANDA Patient Condition: Good Procedures Removal of right intramedullary carmen, right posterior total hip arthroplasty Hospital Course This is a 81-year-old female, who was seen in the clinic initially complaining of right hip pain. She had previously had a right intertrochanteric fracture that required closed reduction intramedullary rodding. 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 On 02/23/2017, the patient was admitted and taken to the operating room where she underwent a hardware removal, right posterior total hip arthroplasty. There were no intraoperative complications. The patient tolerated procedure well. She was taken to the recovery room in stable condition. Pain was well-controlled oral pain medication. She was started on aspirin and SCDs for DVT prophylaxis. She did develop postoperative anemia, requiring a blood transfusion. She remained neurovascularly intact throughout her hospital stay. She began physical therapy on postoperative day 1 and made marginal progress. Per PT, she was able to walk adequate distances, but was non-compliant, impulsive, and would get easily agitated. She also refused to use her abduction pillow and SCDs while in the hospital, despite multiple attempts to speak with her of their importance. PT did recommend she goes to a SNF for safety reasons, but despite talking to the patient and her daughter, they refused and demanded to be discharged home on POD #3. Prior to discharge, the incision was inspected and noted to be clean, dry, and intact. Dressing changes were done prior to patient going home. DISCHARGE INSTRUCTIONS: The patient will be discharged home in fair condition. She is to resume a normal diet. She is weightbearing as tolerated on the right lower extremity. She will begin physical therapy with home health. She will be discharged home with a medication noted, and is to resume all her normal home medication. Patient is to call the office or go to emergency room for any concerns including increased redness, swelling, drainage, fever, or any concerns regarding the operation or site of incision. Home Meds Active Scripts Tramadol HCl (Tramadol HCl) 50 Mg Tablet, 50 MG PO Q6 for 30 Days, #60 TAB Prov:PRIYA GUERRA PA-C 02/25/17 Pantoprazole* (Pantoprazole*) 40 Mg Tablet., 40 MG PO BID@06,18 for 30 Days, # 60 Prov:PRIYA GUERRA PA-C 02/25/17 Hydrocodone Bit-Acetaminophen (Hydrocodone Bit-APAP) 5-325MG Tablet, 1 TAB PO Q4H Y for PAIN LEVEL 1-3 for 30 Days, #60 TAB Prov:PRIYA GUERRA PA-C 02/25/17 Aspirin (Aspir-Kristel) 325 Mg Tablet., 325 MG PO BID for 40 Days, #80 Prov:PRIYA GUERRA PA-C 02/25/17 Reported Medications Fenofibric Acid (Choline) (Trilipix) 135 Mg Capsule.dr, 135 MG PO DAILY, CAP 02/23/17 Felodipine* (Felodipine*) 10 Mg Tab.sr.24h, 10 MG PO DAILY, TAB.SA 02/23/17 Valsartan* (Diovan*) 160 Mg Tablet, 160 MG PO DAILY, TAB 02/23/17 Discontinued Reported Medications Aspirin* (Aspirin* Chew) 81 Mg Tab.chew, 81 MG PO DAILY, TAB.CHEW 02/23/17 Follow-up Plan Follow-up in the office on 03/05/2017 Primary Care Provider Rafael Lovell MD Pending Labs Laboratory Tests Test 02/26/17 05:05 Hemoglobin 7.7g/dl (12.0-16.0) Hematocrit 24.8% (37.0-47.0) Sodium Level 143mmol/L (135-144) Potassium Level 3.3mmol/L (3.5-5.1) Chloride Level 105mmol/L (97-110) Carbon Dioxide Level 26mmol/L (21-31) Anion Gap 15 (8-16) Blood Urea Nitrogen 14mg/dl (7-20) Creatinine 0.59mg/dl (0.44-1.00) Glucose Level 90mg/dl (70-220) Calcium Level 8.7mg/dl (8.4-10.2) PRIYA GUERRA PA-C Feb 26, 2017 14:07
== END 2017-02-26 16:58 | disposition home health service (06) | DRG 470 ==
LOC: REC 10:17 → MS1 18:45
PROVIDERS: ADMIT Orthopaedic Surgery; ATTEND Orthopaedic Surgery
PROC: 30243H0 Transfusion of Autologous Whole Blood into Central Vein, Percutaneous Approach (ICD-10-PCS; 2017-02-23)
PROC: 0SR902A Replacement of Right Hip Joint with Metal on Polyethylene Synthetic Substitute, Uncemented, Open Approach (ICD-10-PCS; principal; 2017-02-23 13:00)
PROC: 0QP604Z Removal of Internal Fixation Device from Right Upper Femur, Open Approach (ICD-10-PCS; 2017-02-23 13:00)
PROC: 30233N1 Transfusion of Nonautologous Red Blood Cells into Peripheral Vein, Percutaneous Approach (ICD-10-PCS; 2017-02-26)
DX: S72.011A Unspecified intracapsular fracture of right femur, initial encounter for closed fracture (principal); D64.9 Anemia, unspecified; S72.101S Unspecified trochanteric fracture of right femur, sequela
CPT/HCPCS: 36430; 72170; 73530; 80048; 81003; 85014; 85018; 86850; 86900; 86901; 86920; 87081; 87086; 88300; 88304; 88311; 97110; 97116; 97163; 97166; 97530; 97535; C9290; J0171; J0690; J0697; J0735; J1100; J1644; J1885; J2250; J2274; J2405; J2710; J3010; J3370; J7050; J7120; P9016

== ENCOUNTER → 2017-03-05 | Outpatient (CLI) | payer MEDICARE, MEDICAID ==
[~2017-03-05] MED LIST changes: +ASPI325T32 PO; -BUPIVACAINE LIPOSOME/PF 266 MG/20 ML VIAL INFIL ONE; -CEFAZOLIN 2GM/50 ML (PMX) 50 ML X1 BEFORE INCISION IVPB ONE; -CELECOXIB 400 MG PO X1 DOSE PO ONE; -ETOMIDATE 20 MG INJ ONE; +FELO10TA PO; +FENO135C3 PO; +HYDR-3498 PO; -ONDANSETRON 4 MG IV X 1 DOSE IV ONE; -PAIN COCKTAIL-CEFUROXIME IRR ONE; +PANT40TA4 PO; -PREGABALIN 300 MG PO X1 PO ONE; -SOD CHLORIDE 0.9% IV ONE; -SOD CHLORIDE 0.9% IVPB ONE; +TRAM50TA2 PO; -TRANEXAMIC ACID IV ONE; -TRANEXAMIC ACID IVPB ONE; +VALS160T20 PO; -oxyCODONE (CR) 10 MG TAB [oxyCONTIN] X1 DOSE PO ONE; -traMADOL 50 MG TAB X 1 DOSE PO ONE
--- NOTE | 2017-03-05 12:29 | PN ---
Date/Time of Note Date/Time of Note DATE: 03/05/17 TIME: 12:22 Assessment/Plan VTE Prophylaxis VTE Prophylaxis Intervention: ambulation, other Assessment/Plan Assessment/Plan ASSESSMENT: 10 days status post hardware removal, right posterior total hip arthroplasty PLAN: The jennifer removed today, and Steri-Strips were applied. She is to continue posterior hip precautions. She is to continue aspirin 325 mg twice daily for DVT prophylaxis. Additionally she is to continue physical therapy with home health. We will see her back in 4 weeks for repeat evaluation. The patient is to call the office if she has any concerns in the meantime. Subjective 24 Hr Interval Summary Free Text/Dictation The patient presents today for her first postoperative evaluation. She is 10 days status post right hip hardware removal, and posterior total hip arthroplasty. She is doing satisfactory overall. She is at home being taken care of by her daughter. She denies any fevers or chills. She is doing physical therapy with home health. She is taking aspirin twice daily for DVT prophylaxis. She is ambulating with a front wheel walker. She presents today for her first postoperative evaluation. Exam/Review of Systems Exam On exam today, she is alert and oriented 4, and in no acute distress. Exam of the right hip demonstrates the incision to be clean, dry, and intact. She is ambulating with a front wheel walker. There is no erythema, warmth, pus, or drainage noted. She has mild pain with passive range of motion of the right hip joint. There is no significant soft tissue swelling. The compartments otherwise soft. Homans sign is negative. She is neurovascularly intact distally. IMAGING: X-rays of the right hip are obtained today and reviewed by me. They demonstrate anatomic alignment with no fractures or dislocations identified. PRIYA GUERRA PA-C Mar 05, 2017 12:29
--- NOTE | 2017-03-05 15:46 | RADRPT ---
PROCEDURE: XR Right hip and pelvis. CLINICAL INDICATION: Right hip pain. Pelvic pain. Postop. TECHNIQUE: Two views. Frontal pelvis and Frontalright hip. COMPARISON: 02/15/2017. 02/23/2017. FINDINGS: There is a right hip total arthroplasty which appears satisfactory. There is no fracture, dislocati on, or loosening. Right lateral skin jennifer are once again noted. The right surgical drain has been removed. There has been open reduction and internal fixation of the left hip with a carmen in the shaft of the f emur and 2 screws in the neck of the femur. Alignment is satisfactory and unchanged. There is no new fracture or dislocation. There is no lytic or blastic lesion. There are degenerative changes of the lower lumbar spine. IMPRESSION: 1. Satisfactory postoperative appearance of both hips. 2. Degenerative changes of the lower lumbar spine. RPTAT: QQ .Kris Jones MD, Date Time Electronically viewed and signed by .Kris Jones MD, on 03/05/2017 15:46 .R/
== END | disposition home or self-care (01) ==
LOC: HKI 10:35
PROVIDERS: ATTEND Orthopaedic Surgery
DX: Z47.1 Aftercare following joint replacement surgery (principal); Z96.641 Presence of right artificial hip joint
CPT/HCPCS: 73502